=== PATIENT | male | born 1995 | race American Indian/Alaskan Native ===

== ENCOUNTER 2017-12-24 02:16 | Emergency (ER) | payer SELFPAY ==
[2017-12-24] MEDS ORDERED: cefTRIAXone 1 GM Vial IVPUSH ONE (03:36)
[2017-12-24 04:09] LABS: ANION GAP 13.6; CHLORIDE,CL 101 mmol/L (101-111); SODIUM,NA 137 mmol/L (135-145)
--- NOTE | 2017-12-24 04:45 | EDM.PDOC ---
ED HPI GENERAL MEDICAL PROBLEM - General Chief Complaint: Skin Complaint Stated Complaint: JOVANNI PATTERSON? [id number] Time Seen by Provider: 12/24/17 02:40 Source of Information: Reports: Patient History Limitations: Reports: No Limitations - History of Present Illness INITIAL COMMENTS - FREE TEXT/NARRATIVE: C/o rash, redness and swelling to left fore arm, started as few red spots yesterday, thinks may have gotten into poison tram, Has never had reaction like this. Tried calamine lotion tonight for itching, few small raised areas on right arm also, rash to left shoulder. 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 Previous skin infection in past after getting scratched in [place]. No fever or chills. 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 [No Known Home Meds] 12/24/17 [History] Past Medical History HEENT History: Reports: None Cardiovascular History: Reports: None Respiratory History: Reports: None Gastrointestinal History: Reports: None Genitourinary History: Reports: None Musculoskeletal History: Reports: Other (See Below) Other Musculoskeletal History: wrist injury 3 weeks ago, was not seen for this Neurological History: Reports: None Psychiatric History: Reports: None Endocrine/Metabolic History: Reports: None Hematologic History: Reports: None Immunologic History: Reports: None Oncologic (Cancer) History: Reports: None Dermatologic History: Reports: None - Infectious Disease History Infectious Disease History: Reports: None - Past Surgical History HEENT Surgical History: Reports: None Cardiovascular Surgical History: Reports: None Social & Family History - Family History Family Medical History: Noncontributory - Tobacco Use Smoking Status *Q: Never Smoker Second Hand Smoke Exposure: Yes - Caffeine Use Caffeine Use: Reports: Coffee, Energy Drinks - Recreational Drug Use Recreational Drug Use: No ED ROS GENERAL - Review of Systems Review Of Systems: ROS reveals no pertinent complaints other than HPI. ED EXAM, SKIN/RASH Exam: See Below Exam Limited By: No Limitations General Appearance: Alert, No Apparent Distress Eye Exam: Bilateral Eye: EOMI Ears: Normal External Exam Nose: Normal Inspection Throat/Mouth: Normal Inspection Head: Atraumatic, Normocephalic Neck: Normal Inspection Respiratory/Chest: No Respiratory Distress, Lungs Clear Cardiovascular: Normal Peripheral Pulses, Regular Rate, Rhythm GI/Abdominal: Soft Extremities: No: Normal Inspection (slight swelling left wrist and forearm) Neurological: Alert Psychiatric: Normal Affect Skin: Warm, Erythema, Rash Location, Skin: Upper Extremity, Right, Upper Extremity, Left Characteristics: Papular (right forearm), Vesicular (large weeping 4cm bulla, 6cm erythematous base), Urticarial Associated features: Warmth, Tenderness Course - Vital Signs Last Recorded V/S: Last Vital Signs Temp 98.6 F 12/24/17 02:27 Pulse 62 12/24/17 02:27 Resp 14 12/24/17 02:27 BP 136/79 12/24/17 02:27 Pulse Ox 100 12/24/17 02:27 - Orders/Labs/Meds Labs: Laboratory Tests 12/24/17 12/24/17 12/24/17 Range/Units 03:38 03:38 03:38 WBC 7.8 (5.0-10.0) 10^3/uL RBC 5.02 (4.6-6.2) 10^6/uL Hgb 14.8 (14.0-18.0) g/dL Hct 43.7 (40.0-54.0) % MCV 87.1 (80-100) fL MCH 29.5 (27.0-34.0) pg MCHC 33.9 (33.0-35.0) g/dL Plt Count 225 (150-450) 10^3/uL Neut % (Auto) 65.7 (42.2-75.2) % Lymph % (Auto) 25.5 (20.5-50.1) % Maury % (Auto) 6.8 (2-8) % Eos % (Auto) 1.9 (1.0-3.0) % Baso % (Auto) 0.1 (0.0-1.0) % Sodium 137 (135-145) mmol/L Potassium 3.6 (3.6-5.0) mmol/L Chloride 101 (101-111) mmol/L Carbon Dioxide 26.0 (21.0-31.0) mmol/L Anion Gap 13.6 BUN 16 (7-18) mg/dL Creatinine 0.7 (0.6-1.3) mg/dL Est Cr Clr Drug Dosing 149.04 mL/min Estimated GFR (MDRD) > 60 BUN/Creatinine Ratio 22.85 Glucose 95 (74-105) mg/dL Lactic Acid 1.2 (0.5-2.2) mmol/L Calcium 9.0 (8.4-10.2) mg/dl Total Bilirubin 1.2 H (0.2-1.0) mg/dL AST 34 (10-42) IU/L ALT 26 (10-60) IU/L Alkaline Phosphatase 55 (42-121) IU/L Total Protein 7.6 (6.7-8.2) g/dl Albumin 4.4 (3.2-5.5) g/dl Globulin 3.2 Albumin/Globulin Ratio 1.38 Meds: Medications Discontinued Medications Generic Name Dose Route Start Last Admin Trade Name Freq PRN Reason Stop Dose Admin Ceftriaxone Sodium 1 gm 12/24/17 03:36 12/24/17 03:53 Rocephin IVPUSH 12/24/17 03:37 1 gm ONETIME ONE Administration Departure - Departure Time of Disposition: 05:00 Disposition: Home, Self-Care 01 Condition: Good Clinical Impression: Contact dermatitis due to poison tram, Cellulitis - Discharge Information *PRESCRIPTION DRUG MONITORING PROGRAM REVIEWED*: Not Applicable Instructions: Poison Tram Dermatitis Referrals: PCP,None [Primary Care Provider] - Forms: ED Department Discharge Additional Instructions: elevate extremity cover blistered area benadryl 50mg every 6 hours as needed for itching prednisone 10mg daily x 5
== END 2017-12-24 04:57 | disposition home or self-care (01) ==
LOC: DL.ED 02:16
DX: L25.5 Unspecified contact dermatitis due to plants, except food (principal); L03.114 Cellulitis of left upper limb
CPT/HCPCS: 36415; 73120; 80053; 83605; 85025; 87040; 87070; 96372; 99283; J0696

== ENCOUNTER 2024-08-29 11:07 | Emergency (ER) | payer MEDICAID, OTHER ==
[2024-08-29] MEDS: Lidocaine/EPINEPHrine/Tetracaine Soln 5 ML Each TOP ONE (11:53)
[2024-08-29] MEDS: Lidocaine 1% with EPINEPHrine 1:100,000 20 ML MDV INJECT ONE (11:53)
== END 2024-08-29 13:01 | disposition home or self-care (01) ==
LOC: DL.ED 11:07
DX: S01.81XA Laceration without foreign body of other part of head, initial encounter (principal); X50.9XXA Other and unspecified overexertion or strenuous movements or postures, initial encounter
CPT/HCPCS: 12013; 99282; 99283; A9270; J2004